=== PATIENT | male | born 1975 | race Caucasian/White ===

== ENCOUNTER 2021-01-31 09:11 | Inpatient (IN) | payer BC ==
[~2021-01-31] VITALS: Ht 180.3 cm; Wt 108.7 kg
[2021-01-31] MEDS ORDERED: TOPROL XL100 MG PO (09:25)
[2021-01-31] MEDS ORDERED: IMDUR 30MG30 MG/TAB PO (09:26)
[2021-01-31] MEDS ORDERED: CARDIZEM CD 24240 MG PO (09:27)
[2021-01-31] MEDS ORDERED: GLUCOTROL XL5 MG/TAB PO (09:28)
[2021-01-31] MEDS ORDERED: ZOCOR 20MG20 MG PO (09:28)
[2021-01-31] MEDS ORDERED: APRESOLINE 25MG25 MG PO (09:29)
[2021-01-31] MEDS ORDERED: FLEXERIL 1010 MG/TAB PO (09:29)
[2021-01-31] MEDS ORDERED: COUMADIN 5MG5 MG/TAB PO (09:29)
[2021-01-31] MEDS ORDERED: NEURONTIN100 MG/CAP PO (09:30)
[2021-01-31 10:29] VITALS: BP 191/111; PULSE 78; TEMP 98.1
[2021-01-31 11:30] VITALS: BP 183/122; PULSE 72; TEMP 98.4
[2021-01-31 12:05] LABS: INR 2.3 (0.8-3.0); PROTHROMBIN TIME 26.2 SECONDS (9.7-12.8)
[2021-01-31 12:06] LABS: BASO # 0.1 K/mm3 (0.0-0.2); BASO % 0.7 % (0.0-2.0); EOS # 0.3 K/mm3 (0.0-0.7); EOS % 2.4 % (0-4.0); GRAN # 8.8 K/mm3 (1.4-6.5); GRAN % 61.7 % (42.2-75.2); HEMATOCRIT 44.1 % (42.0-52.0); HEMOGLOBIN 14.7 g/dl (13.5-18.0); LYMPH # 3.8 K/mm3 (1.2-3.4); LYMPH % 26.5 % (20.0-51.0); MEAN CELL VOLUME 85 fl (80.0-100.0); MEAN CORPUSCULAR HEMOGLOBIN 28 pg (27.0-31.0); MEAN CORPUSCULAR HGB CONC 33 g/dl (33.0-37.0); MEAN PLATELET VOLUME 10.2 fl (7.4-10.4); MONO # 1.2 K/mm3 (0.1-0.6); MONO % 8.5 % (1.7-9.3); PLATELET COUNT 254 K/mm3 (130-400); RED BLOOD COUNT 5.19 M/mm3 (4.20-5.60); REDCELL DISTRIBUTION WIDTH-CV 13.7 % (11.5-14.5)
[2021-01-31 12:17] LABS: ALBUMIN 2.9 gm/dL (3.5-5.0); BILIRUBIN,TOTAL 0.2 mg/dL (0.2-1.2); CREATININE, serum 3.03 mg/dL (0.72-1.25); POTASSIUM 4.1 mmol/L (3.5-4.5); TOTAL PROTEIN 7.1 gm/dL (6.2-8.1)
[2021-01-31 14:09] LABS: CREATININE, serum 2.97 mg/dL (0.72-1.25)
[2021-01-31 15:25] VITALS: BP 179/101; PULSE 63; TEMP 98.7
--- NOTE | 2021-01-31 17:42 | NUR ---
Patient has had an uneventful day since being admitted to [facility]. at the bedside. A&Ox4. VSS, BP hypertensive, doctor aware. Patient has concerns/questions about new medications. Nurse provided education and patient was informed that the doctor will be visiting the patient. Denies pain and discomfort. IV CDI. No further needs expressed. Call light within reach
[2021-01-31 19:46] VITALS: BP 156/106; PULSE 64; TEMP 97.8
--- NOTE | 2021-01-31 23:50 | NUR ---
Patient assessed around 2014. Alert and oriented x 4, and able to make needs known. Reported headache, and given PRN APAP as requested. HRI. Telemetry placed on patient per orders. Voices no questions, needs, or concerns at this time. Given medications per oders. In bed with call light within reach.
[2021-02-01 00:32] VITALS: BP 174/103; PULSE 66; TEMP 97.9
[2021-02-01 01:18] LABS: BUDDING YEAST Present /hpf; PH 5 (5-8); SQUAMOUS EPITHELIAL None Seen /hpf; URINE APPEARANCE Clear; URINE BACTERIA Rare /hpf; URINE BILIRUBIN Negative (NEGATIVE); URINE BLOOD 2+ (NEGATIVE); URINE COLOR Yellow; URINE GLUCOSE 3+ (NEGATIVE); URINE KETONE Negative (NEGATIVE); URINE LEUKOCYTE ESTERASE Negative (NEGATIVE); URINE NITRATE Negative (NEGATIVE); URINE PROTEIN(semi-quant) 3+ (NEGATIVE); URINE RBC 20-50 /hpf; URINE UROBILINOGEN Negative (NEGATIVE); URINE WBC 0-2 /hpf
[2021-02-01 03:48] VITALS: BP 175/96; PULSE 71; TEMP 97.9
[2021-02-01 05:39] LABS: BASO # 0.1 K/mm3 (0.0-0.2); BASO % 0.8 % (0.0-2.0); EOS # 0.3 K/mm3 (0.0-0.7); EOS % 2.3 % (0-4.0); GRAN # 8.5 K/mm3 (1.4-6.5); GRAN % 67.5 % (42.2-75.2); HEMATOCRIT 44.1 % (42.0-52.0); HEMOGLOBIN 14.4 g/dl (13.5-18.0); LYMPH # 2.8 K/mm3 (1.2-3.4); LYMPH % 22.4 % (20.0-51.0); MEAN CELL VOLUME 85 fl (80.0-100.0); MEAN CORPUSCULAR HEMOGLOBIN 28 pg (27.0-31.0); MEAN CORPUSCULAR HGB CONC 33 g/dl (33.0-37.0); MEAN PLATELET VOLUME 10.1 fl (7.4-10.4); MONO # 0.9 K/mm3 (0.1-0.6); MONO % 6.8 % (1.7-9.3); PLATELET COUNT 277 K/mm3 (130-400); RED BLOOD COUNT 5.17 M/mm3 (4.20-5.60); REDCELL DISTRIBUTION WIDTH-CV 13.8 % (11.5-14.5)
[2021-02-01 05:59] LABS: ALBUMIN 2.9 gm/dL (3.5-5.0); CALCIUM 9.3 mg/dL (8.4-10.2); CREATININE, serum 3.02 mg/dL (0.72-1.25); PHOSPHOROUS 3.8 mg/dL (2.3-4.7); POTASSIUM 4.1 mmol/L (3.5-4.5)
--- NOTE | 2021-02-01 06:05 | NUR ---
24 hour urine started at 0100. Given PRN APAP as requested for headache this shift. Given PRN BP medication per orders, continues to be elevated. In recliner with call light within reach. Voices no questions, needs, or concerns at this time.
[2021-02-01 07:45] VITALS: BP 175/98; PULSE 68; TEMP 97.8
[2021-02-01 07:50] LABS: COLLECTION METHOD CLEAN CATCH
--- NOTE | 2021-02-01 09:02 | NUR ---
Pt assessment complete. Pt sitting up in the chair at this time. He is A/Ox4. His breathing is even and unlabored on RA. Pt reports a headache this AM, PRN pain medication administered. Pt denies any N/V. POC discussed with patient who verbalizes understanding. No needs at this time. Call light within reach.
--- NOTE | 2021-02-01 10:00 | NUR ---
Initial visit; Patient thanked Power Technician for looking in on him though declined spiritual care.
--- NOTE | 2021-02-01 10:09 | NUR ---
JOSE met with the patient to discuss discharge plan. The patient lives in [place] with his , Nena (ph#[phone]). He reports independence with ADLs and has a cane and walker available, if needed. The patient's PCP is Dr. Ash Paul and he receives his medications at [facility]. He reports no difficulties obtaining his meds at this time. The patient does not have a DPOA-HC, but he was interested in obtaining a form. JOSE provided. The patient plans to return home with his upon discharge. No additional needs at this time. *Discharge plan: home with *
[2021-02-01 12:06] VITALS: BP 164/117; PULSE 69; TEMP 97.8
[2021-02-01 15:55] VITALS: BP 176/113; PULSE 74; TEMP 98
[2021-02-01 15:57] LABS: HEPATITIS B SURFACE ANTIBODY <2.0 (()); HEPATITIS B SURFACE ANTIGEN Negative (Negative); HEPATITIS C VIRUS ANTIBODY Negative (Negative)
--- NOTE | 2021-02-01 16:06 | NUR ---
BP elevated, scheduled BP meds administered. Pt still reports a headache, discussed the use of Fioricet with the patient and the doctors would like for him to take this along with his Imdur. Pt continues to refuse the Imdur, stating he knows why he needs to take it as well as side effects if not taking it. Verbalized understanding. No further needs.
[2021-02-01 18:58] VITALS: BP 180/106; PULSE 53; TEMP 97.6
--- NOTE | 2021-02-01 22:28 | NUR ---
Patient assessed around 1930. Alert and oriented, and able to make needs known. BP elevated. Given HTN medications per orders. Denies pain and discomfort at this time. HRI. Telemetry in place. LS CTA. Respirations even and unlabored. Continues on 24 hour urine per orders. Dr. Macedo called and spoke to patient on phone. updated on plan of care. Patient voice no questions, needs, or concerns at this time. Call light within reach.
[2021-02-02 00:19] VITALS: BP 159/106; PULSE 72; TEMP 97.7
[2021-02-02 05:08] VITALS: BP 152/96; PULSE 75; TEMP 97.7
--- NOTE | 2021-02-02 05:58 | NUR ---
Patient continues to refuse Imdur. BP 150s/90s at this time. Completed 24 hour urine. In bed with call light within reach.
[2021-02-02 06:37] LABS: BASO # 0.1 K/mm3 (0.0-0.2); BASO % 0.8 % (0.0-2.0); EOS # 0.3 K/mm3 (0.0-0.7); GRAN % 68.7 % (42.2-75.2); HEMATOCRIT 40.9 % (42.0-52.0); HEMOGLOBIN 13.5 g/dl (13.5-18.0); LYMPH # 1.8 K/mm3 (1.2-3.4); LYMPH % 20.6 % (20.0-51.0); MEAN CELL VOLUME 85 fl (80.0-100.0); MEAN CORPUSCULAR HEMOGLOBIN 28 pg (27.0-31.0); MEAN CORPUSCULAR HGB CONC 33 g/dl (33.0-37.0); MEAN PLATELET VOLUME 10.4 fl (7.4-10.4); MONO # 0.6 K/mm3 (0.1-0.6); MONO % 6.6 % (1.7-9.3); PLATELET COUNT 224 K/mm3 (130-400); RED BLOOD COUNT 4.81 M/mm3 (4.20-5.60); REDCELL DISTRIBUTION WIDTH-CV 13.9 % (11.5-14.5)
[2021-02-02 07:04] LABS: ALBUMIN 2.8 gm/dL (3.5-5.0); CALCIUM 8.7 mg/dL (8.4-10.2); CREATININE, serum 3.26 mg/dL (0.72-1.25); PHOSPHOROUS 3.7 mg/dL (2.3-4.7); POTASSIUM 3.9 mmol/L (3.5-4.5)
--- NOTE | 2021-02-02 07:26 | NUR ---
RECEIVED REPORT FROM EDDY NGUYEN. KARL IN CHAIR. BREATHING REG/UNLABORED. CALL EUBANKS IN REACH
[2021-02-02 08:04] VITALS: BP 156/109; PULSE 67; TEMP 98.1
[2021-02-02 08:33] LABS: KAPPA FREE LIGHT CHAIN-SERUM 109.73 mg/L (()); KAPPA LAMBDA RATIO 1.73 ratio (()); LAMDA FREE LIGHT CHAIN SERUM 63.29 mg/L (())
[2021-02-02 11:52] VITALS: BP 168/111; PULSE 77; TEMP 98.4
[2021-02-02] MEDS ORDERED: IMDUR 30MG30 MG/TAB PO (12:32)
[2021-02-02] MEDS ORDERED: APRESOLINE50 MG PO (12:32)
[2021-02-02] MEDS ORDERED: HYTRIN 1MG C1 MG/CAP PO (12:33)
[2021-02-02] MEDS ORDERED: PRINIVIL20 MG PO (12:34)
[2021-02-02 13:27] LABS: ANA SCREEN with REFLEX Negative (Negative)
--- NOTE | 2021-02-02 16:32 | NUR ---
DISCHARGE INSTRUCTIONS REVIEWED WITH PT. QUESTIONS INVITED AND ANSWERED. TELE AND IV REMOVED. PT ESCORTED OUT WITH [employer]
[2021-02-02 19:37] LABS: URINE HOURS (UPEP) 24 (())
[2021-02-04 09:42] LABS: A/G RATIO (PEP) 0.65 (()); BETA GLOBULINS (PEP) 1.5 g/dL (0.7-1.2)
[2021-02-04 16:36] LABS: URINE PROTEIN 24HR (UPEP) 5402 mg/24 h (<229)
[2021-02-04 17:58] LABS: C-ANCA 113 U/mL (0-99)
[2021-02-10 11:06] LABS: URINE A/G RATIO 24HR (UPEP) 1.73 (()); URINE ALPHA 2 GLOB 24HR (UPEP) 432.2 mg/24 h (()); URINE BETA GLOB 24HR (UPEP) 594.2 mg/24 h (()); URINE GAMMA GLOB 24HR (UPEP) 864.3 mg/24 h (())
== END 2021-02-02 15:45 | disposition home or self-care (01) | DRG 305 ==
LOC: MEDICAL 09:11
PROVIDERS: Nurse Practitioner; ADMIT Internal Medicine Nephrology
DX: I16.0 Hypertensive urgency (principal); N18.5 Chronic kidney disease, stage 5; Z68.45 Body mass index [BMI] 70 or greater, adult; I12.0 Hypertensive chronic kidney disease with stage 5 chronic kidney disease or end stage renal disease; E11.22 Type 2 diabetes mellitus with diabetic chronic kidney disease; E66.9 Obesity, unspecified; F17.210 Nicotine dependence, cigarettes, uncomplicated; G47.30 Sleep apnea, unspecified; I48.91 Unspecified atrial fibrillation; E11.65 Type 2 diabetes mellitus with hyperglycemia; D72.829 Elevated white blood cell count, unspecified; T46.3X6A Underdosing of coronary vasodilators, initial encounter; Z79.01 Long term (current) use of anticoagulants; Z91.138 Patient's unintentional underdosing of medication regimen for other reason
CPT/HCPCS: J1815

== ENCOUNTER → 2021-02-08 | Outpatient (CLI) | payer BC ==
[~2021-02-08] MED LIST: APRESOLINE 25MG25 MG PO; APRESOLINE50 MG PO; CARDIZEM CD 24240 MG PO; COUMADIN 5MG5 MG/TAB PO; FLEXERIL 1010 MG/TAB PO; GLUCOTROL XL5 MG/TAB PO; HYTRIN 1MG C1 MG/CAP PO; IMDUR 30MG30 MG/TAB PO; NEURONTIN100 MG/CAP PO; PRINIVIL20 MG PO; TOPROL XL100 MG PO; ZOCOR 20MG20 MG PO
== END ==
LOC: COL.VAS 09:00
DX: I10 Essential (primary) hypertension (principal)

== ENCOUNTER 2022-06-27 07:33 | Day surgery (SDC) | payer BC ==
[~2022-06-27] VITALS: Ht 180.3 cm; Wt 117.3 kg
[~2022-06-27 07:33] MED LIST changes: +LIPITOR 80MG80 MG PO; +PLAVIX 75MG TAB75 MG PO
[2022-06-27] MEDS ORDERED: NEURONTIN600 MG/TAB PO (08:22)
[2022-06-27] MEDS ORDERED: HYDRALAZINE HC100 MG PO ×2 (08:23→08:46)
[2022-06-27] MEDS ORDERED: PRINIVIL40 MG PO (08:24)
[2022-06-27] MEDS ORDERED: COREG12.5 MG PO (08:24)
[2022-06-27] MEDS ORDERED: HYTRIN 5MG C5 MG/CAP PO (08:25)
[2022-06-27] MEDS ORDERED: COUMADIN 3MG3 MG/TAB PO (08:27)
[2022-06-27] MEDS ORDERED: BUMEX2 MG PO (08:45)
[2022-06-27] MEDS ORDERED: BUMEX 1MG TA1 MG/TA1 PO (08:46)
[2022-06-27] MEDS ORDERED: MIRAPEX 0.0.125 MG/T PO (08:47)
[2022-06-27] MEDS ORDERED: PROTONIX 40MG T40 MG PO (09:45)
[2022-06-27 09:50] VITALS: BP 127/81; PULSE 111; TEMP 97.9
[2022-06-27 10:05] VITALS: BP 116/103; PULSE 113
[2022-06-27 10:20] VITALS: BP 150/106; PULSE 101
--- NOTE | 2022-06-27 10:40 | NUR ---
0950-PT TO BAY 2 PER CART FROM PROCEDURE ROOM. PT AMBUALTED TO CHAIR WITH ASSISTANCE. REPORT RECEIVED. CALL LIGHT WITHIN REACH. PT DENIES ANY NEEDS AT THIS TIME. 1005-PT TOLERATING WATER AND MUFFIN. 1020-IV DC'D AT THIS TIME. PT DENIES ANY ASSISTANCE TO DRESS. 1026-DR IVERSON IN ROOM DISCUSSING FINDINGS FROM PROCEDURE. 1035-DISCHARGE EDUCATION COMPLETED WITH PT AND HIS . VERBALIZED UNDERSTANDING OF HOME AND FOLLOW UP CARE. ALL QUESTIONS ANSWERED. DISCHARGED PAPERWORK GIVEN TO PT. 1040-PT OFF UNIT PER WHEELCHAIR. PT DISCHARGED TO HOME WITH PER PERSONAL VEHICLE.
[2022-06-27 11:10] VITALS: BP 197/116; PULSE 97; TEMP 97.8
== END 2022-06-27 10:40 | disposition home or self-care (01) ==
LOC: SDCO 07:33
DX: D12.4 Benign neoplasm of descending colon (principal); D12.5 Benign neoplasm of sigmoid colon; D12.8 Benign neoplasm of rectum; K63.5 Polyp of colon; K64.0 First degree hemorrhoids; K29.30 Chronic superficial gastritis without bleeding; K29.80 Duodenitis without bleeding; K25.9 Gastric ulcer, unspecified as acute or chronic, without hemorrhage or perforation; E11.22 Type 2 diabetes mellitus with diabetic chronic kidney disease; I13.2 Hypertensive heart and chronic kidney disease with heart failure and with stage 5 chronic kidney disease, or end stage renal disease; E11.42 Type 2 diabetes mellitus with diabetic polyneuropathy; N18.6 End stage renal disease; I50.9 Heart failure, unspecified; D64.9 Anemia, unspecified; I48.20 Chronic atrial fibrillation, unspecified; Z79.01 Long term (current) use of anticoagulants; Z95.5 Presence of coronary angioplasty implant and graft; Z79.84 Long term (current) use of oral hypoglycemic drugs; Z79.899 Other long term (current) drug therapy
CPT/HCPCS: J0360; J2704; J7030

== ENCOUNTER 2023-04-11 10:03 | Outpatient (CLI) | payer MEDICAID ==
[~2023-04-11] VITALS: Ht 180.3 cm; Wt 118.1 kg
[~2023-04-11 10:03] MED LIST changes: +BUMEX 1MG TA1 MG/TA1 PO; +BUMEX2 MG PO; +COREG12.5 MG PO; +COUMADIN 3MG3 MG/TAB PO; +HYDRALAZINE HC100 MG PO; +HYTRIN 5MG C5 MG/CAP PO; +MIRAPEX 0.0.125 MG/T PO; +NEURONTIN600 MG/TAB PO; +NORCO 325 MG-51 TAB PO; +ONE DAILY MULTI1 TA1 PO; +PRINIVIL40 MG PO; +PROTONIX 40MG T40 MG PO
[2023-04-11 10:29] VITALS: BP 180/120; PULSE 80; TEMP 98
[2023-04-11] MEDS ORDERED: ZAROXOLYN 2.52.5 MG PO (11:17)
[2023-04-11] MEDS ORDERED: DULCOLAX STOOL100 MG PO (11:20)
[2023-04-11 12:17] VITALS: BP 170/115; PULSE 85
--- NOTE | 2023-04-11 12:18 | NUR ---
Refer to [facility] [employer] report for procedural sedation/notes
[2023-04-11 13:30] VITALS: BP 164/106; PULSE 72
--- NOTE | 2023-04-11 13:34 | NUR ---
Pt taken back to EU 12 on 2L/min via NC to maintain SpO2 > 92% - recieved by Tia Avery RN - vital signs initiated and first set reviewed together - SpO2 96% on 2L. Pt awake, alert and oriented - at bedside - call light in reach - pt denies any needs.
[2023-04-11 13:45] VITALS: BP 160/108; PULSE 75
[2023-04-11 14:00] VITALS: BP 158/100; PULSE 77
[2023-04-11 14:15] VITALS: BP 155/97; PULSE 75
--- NOTE | 2023-04-11 15:28 | NUR ---
pt tolerated recovery period well. vs remained within normal limits and catheter dressing remained clean dry and intact. pt was assisted to main lobby via wheelchair and IV was discontinued. pt verbalized understanding of discharge instructions and was accompanied by upon discharge. pt to go to first dialysis appointment following discharge at 1530 at [facility].
== END 2023-04-11 15:30 | disposition home or self-care (01) ==
LOC: COL.CAR 10:03
DX: N19 Unspecified kidney failure (principal); E11.9 Type 2 diabetes mellitus without complications; I10 Essential (primary) hypertension; E87.70 Fluid overload, unspecified; F17.200 Nicotine dependence, unspecified, uncomplicated
CPT/HCPCS: J0690; J1644; J2250; J3010

== ENCOUNTER 2023-10-11 06:22 | Outpatient (CLI) | payer MEDICARE, MEDICAID ==
[~2023-10-11] VITALS: Ht 180.3 cm; Wt 102.1 kg
[2023-10-11] VITALS (11 sets, daily range): BP systolic 147–169; BP diastolic 93–116; PULSE 74–93
[~2023-10-11 06:22] MED LIST changes: +DULCOLAX STOOL100 MG PO; -NEURONTIN600 MG/TAB PO; +ZAROXOLYN 2.52.5 MG PO
[2023-10-11] MEDS ORDERED: LIPITOR 80MG80 MG PO (07:34)
[2023-10-11] MEDS ORDERED: ASPIRIN 81M81 MG/TA2 PO (07:34)
[2023-10-11] MEDS ORDERED: FERROUS SU325 MG/TAB PO (07:35)
[2023-10-11] MEDS ORDERED: KEPPRA1000 MG PO (07:38)
[2023-10-11] MEDS ORDERED: LOPRESSOR 225 MG/TAB PO (07:38)
[2023-10-11] MEDS ORDERED: DEPAKENE 250 MG/1 ML PO (07:49)
[2023-10-11] MEDS ORDERED: ZOLOFT 50MG50 MG PO (07:50)
[2023-10-11] MEDS ORDERED: RENVELA800 MG PO (07:51)
[2023-10-11] MEDS ORDERED: SILVADENE CREAM1 TU TP (07:51)
[2023-10-11] MEDS ORDERED: NORVASC 10MG10 MG PO (07:52)
[2023-10-11] MEDS ORDERED: MYSOLINE 5050 MG/TAB PO (07:52)
[2023-10-11] MEDS ORDERED: TYLENOL 325MG325 MG PO (07:54)
[2023-10-11 08:07] LABS: BASO # 0.1 K/mm3 (0.0-0.2); BASO % 0.7 % (0.0-2.0); EOS # 0.2 K/mm3 (0.0-0.7); EOS % 2.6 % (0.0-4.0); GRAN # 4.6 K/mm3 (1.4-6.5); GRAN % 63.3 % (42.2-75.2); LYMPH # 1.5 K/mm3 (1.2-3.4); LYMPH % 20.8 % (20.0-51.0); MEAN CELL VOLUME 106 fl (80.0-100.0); MEAN CORPUSCULAR HGB CONC 30 g/dl (33.0-37.0); MEAN PLATELET VOLUME 10.7 fl (7.4-10.4); MONO # 0.9 K/mm3 (0.1-0.6); MONO % 12.3 % (1.7-9.3); PLATELET COUNT 121 K/mm3 (130-400); RED BLOOD COUNT 2.55 M/mm3 (4.20-5.60); REDCELL DISTRIBUTION WIDTH-CV 23.6 % (11.5-14.5)
[2023-10-11 08:09] LABS: HEMATOCRIT 27.1 % (42.0-52.0); HEMOGLOBIN 8.2 g/dl (13.5-18.0); MEAN CORPUSCULAR HEMOGLOBIN 32 pg (27-31)
--- NOTE | 2023-10-11 08:10 | NUR ---
Patient to procedure,report to EDDY melgoza.
--- NOTE | 2023-10-11 08:37 | NUR ---
See merge for all medication, assessment, intervention, and vital sign times.
[2023-10-11] MEDS ORDERED: Nitroglycerin 100 MCG/ML (Cath Lab) 10 ML VIAL IA SCH (09:34)
[2023-10-11] MEDS ORDERED: Heparin 1,000 UNITS/ML 10 ML Multi-Dose VIAL IV SCH (09:34)
[2023-10-11] MEDS ORDERED: Midazolam 2 MG/2 ML VIAL IV SCH (09:36)
[2023-10-11] MEDS ORDERED: fentaNYL 50 MCG/ML 2 ML VIAL IV SCH (09:36)
[2023-10-11] MEDS ORDERED: Iohexol 300 - 100 ML VIAL IA ONE (09:45)
--- NOTE | 2023-10-11 09:46 | NUR ---
Report received from EDDY Blandon.Will await patient's arrival.
--- NOTE | 2023-10-11 10:00 | NUR ---
Bedside report completed with Hali KAM. Call light within reach, site reviewed, no fluids, first set of post op vitals reviewed. Hali KAM denies questions/concerns at this time.
--- NOTE | 2023-10-11 10:04 | NUR ---
Patient returned from procedure.Dressing to left arm observed clean,dry,intact.Pt awake and alert, at bedside.See flowsheet for vitals.
--- NOTE | 2023-10-11 12:21 | NUR ---
Discharge instructions given to pt.Pt verbalizes understanding.Dressing to left arm site is observed clean,dry, and intact.Pt escorted out via wheelchair by this nurse.
== END 2023-10-11 12:47 ==
LOC: COL.CAR 06:22
PROVIDERS: Radiology Diagnostic Radiology
DX: T82.590A Other mechanical complication of surgically created arteriovenous fistula, initial encounter (principal); T82.858A Stenosis of other vascular prosthetic devices, implants and grafts, initial encounter; I12.9 Hypertensive chronic kidney disease with stage 1 through stage 4 chronic kidney disease, or unspecified chronic kidney disease; N18.9 Chronic kidney disease, unspecified; I87.1 Compression of vein; F17.200 Nicotine dependence, unspecified, uncomplicated
CPT/HCPCS: J1644; J2250; J3010; Q9967

== ENCOUNTER → 2023-11-22 | Outpatient (CLI) | payer MEDICARE, MEDICAID ==
[~2023-11-22] MED LIST changes: +ASPIRIN 81M81 MG/TA2 PO; +DEPAKENE 250 MG/1 ML PO; +FERROUS SU325 MG/TAB PO; +KEPPRA1000 MG PO; +LOPRESSOR 225 MG/TAB PO; +MYSOLINE 5050 MG/TAB PO; +NORVASC 10MG10 MG PO; +RENVELA800 MG PO; +SILVADENE CREAM1 TU TP; +TYLENOL 325MG325 MG PO; +ZOLOFT 50MG50 MG PO
== END ==
LOC: COL.RAD 15:29
DX: I69.398 Other sequelae of cerebral infarction (principal); I61.9 Nontraumatic intracerebral hemorrhage, unspecified; R56.9 Unspecified convulsions; E11.42 Type 2 diabetes mellitus with diabetic polyneuropathy; I48.0 Paroxysmal atrial fibrillation; I12.0 Hypertensive chronic kidney disease with stage 5 chronic kidney disease or end stage renal disease; N18.6 End stage renal disease; Z99.2 Dependence on renal dialysis; R20.2 Paresthesia of skin